=== PATIENT | male | born 1975 | race Caucasian/White ===

== ENCOUNTER 2020-01-21 19:31 | Emergency (ER) | payer OTHER ==
[~2020-01-21] VITALS: Ht 180.3 cm; Wt 124.7 kg
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
[2020-01-21] MEDS ORDERED: TETANUS/DIPHTHERIA TOX ADULT 0.5 ML SYR IM ONE (19:45)
[2020-01-21] MEDS ORDERED: BACITRACIN ZINC 0.9GM TP ONE ×3 (19:45→20:30)
== END 2020-01-21 20:45 | disposition home or self-care (01) ==
LOC: ER 20:38
DX: T21.22XA Burn of second degree of abdominal wall, initial encounter (principal); X12.XXXA Contact with other hot fluids, initial encounter; Y92.008 Other place in unspecified non-institutional (private) residence as the place of occurrence of the external cause; I10 Essential (primary) hypertension; E78.5 Hyperlipidemia, unspecified
CPT/HCPCS: 99282

== ENCOUNTER 2020-04-21 11:57 | Emergency (ER) | payer SELFPAY ==
[~2020-04-21] VITALS: Ht 180.3 cm; Wt 124.7 kg
[2020-04-21] MEDS ORDERED: KETOROLAC TROMETHAMINE 30 MG/ML VIAL IV STA (12:20)
[2020-04-21] MEDS ORDERED: ONDANSETRON HCL INJ 2MG/ML 2ML 2 MG/ML VIAL IV STA (12:20)
[2020-04-21] MEDS ORDERED: SODIUM CHLORIDE 0.9% 1000ML 1,000 ML IV STA (12:20)
[2020-04-21 12:35] LABS: BASOPHILS % 0.6 % (0.0-1.0); EOSINOPHILS # (AUTO) 0.3 (0.0-0.4); EOSINOPHILS % 5.2 % (0.0-6.0); HEMATOCRIT 43.4 % (38.2-49.6); HEMOGLOBIN 14.4 g/dL (14.0-18.0); LYMPHOCYTES # (AUTO) 1.4 (1.0-3.2); LYMPHOCYTES % 28.3 % (18.0-39.1); MEAN CORPUSCULAR HGB CONC 33.2 g/dL (31-35); MEAN CORPUSCULAR VOLUME 93.5 fL (81-99); MONOCYTES # (AUTO) 0.4 (0.2-0.8); NEUTROPHILS # (AUTO) 2.9 (2.1-6.9); NEUTROPHILS % 58.5 % (38.7-80.0); PLATELET COUNT 291 x10e3/uL (140-360); RED BLOOD COUNT 4.64 x10e6/uL (4.3-5.7); RED CELL DISTRIBUTION WIDTH 13.4 % (11.7-14.4)
[2020-04-21 12:55] LABS: ALANINE AMINOTRANSFERASE 211 IU/L (0-55); ALBUMIN 4.3 g/dL (3.5-5.0); ALBUMIN/GLOBULIN RATIO 1.3 (0.8-2.0); ALKALINE PHOSPHATASE 137 IU/L (40-150); ANION GAP 13.7 mmol/L (8-16); BLOOD UREA NITROGEN 20 mg/dL (7-26); BUN/CREATININE RATIO 18 (6-25); CALCIUM 9.2 mg/dL (8.4-10.2); CARBON DIOXIDE 26 mmol/L (22-29); CHLORIDE 104 mmol/L (98-107); CREATININE, SERUM 1.09 mg/dL (0.72-1.25); EST GLOMERULAR FILTRATION RATE > 60 ML/MIN (60-); GLUCOSE 138 mg/dL (74-118); POTASSIUM 4.7 mmol/L (3.5-5.1); SODIUM 139 mmol/L (136-145)
[2020-04-21] MEDS ORDERED: PANTOPRAZOLE SO40 MG PO (14:05)
[2020-04-21] MEDS ORDERED: SODIUM CHLORIDE 0.9% 50ML 50 ML ONE (15:04)
[2020-04-21] MEDS ORDERED: IOPAMIDOL 370 MG/ML 200 ML INFUS..BTL INJ ONE (15:04)
== END 2020-04-21 14:13 | disposition home or self-care (01) ==
LOC: ER 12:25
DX: R10.13 Epigastric pain (principal); I10 Essential (primary) hypertension; F32.9 Major depressive disorder, single episode, unspecified; Z98.0 Intestinal bypass and anastomosis status
CPT/HCPCS: 36415; 74177; 80053; 83690; 85025; 99284; J1885; J2405; J7030; Q9967

== ENCOUNTER 2021-02-27 04:34 | Emergency (ER) | payer SELFPAY ==
[~2021-02-27] VITALS: Ht 180.3 cm; Wt 104.3 kg
[~2021-02-27 04:34] MED LIST: PANTOPRAZOLE SO40 MG PO
[2021-02-27] MEDS ORDERED: IBUPROFEN 600 MG TAB PO STA (04:43)
[2021-02-27] MEDS ORDERED: ASPIRIN 81 MG CHEW TAB PO STA (04:54)
[2021-02-27] MEDS ORDERED: AZITHROMYCIN250 MG PO (05:04)
[2021-02-27] MEDS ORDERED: BROMFED DM COU118 ML PO ×2 (05:04→08:11)
[2021-02-27 05:28] LABS: BASOPHILS % 0.7 % (0.0-1.0); EOSINOPHILS # (AUTO) 0.1 (0.0-0.4); EOSINOPHILS % 2.8 % (0.0-6.0); HEMATOCRIT 44.2 % (38.2-49.6); HEMOGLOBIN 14.4 g/dL (14.0-18.0); LYMPHOCYTES # (AUTO) 1.4 (1.0-3.2); LYMPHOCYTES % 32.9 % (18.0-39.1); MEAN CORPUSCULAR HEMOGLOBIN 30.5 pg (28-32); MEAN CORPUSCULAR HGB CONC 32.6 g/dL (31-35); MEAN CORPUSCULAR VOLUME 93.6 fL (81-99); MONOCYTES # (AUTO) 0.7 (0.2-0.8); MONOCYTES % 16.2 % (4.4-11.3); NEUTROPHILS % 47.2 % (38.7-80.0); PLATELET COUNT 255 x10e3/uL (140-360); RED BLOOD COUNT 4.72 x10e6/uL (4.3-5.7); RED CELL DISTRIBUTION WIDTH 13.3 % (11.7-14.4)
[2021-02-27 05:56] LABS: INR 0.93; PROTHROMBIN TIME 13.2 seconds (11.9-14.5)
[2021-02-27 05:57] LABS: PARTIAL THROMBOPLASTIN TIME 29.1 seconds (23.8-35.5)
[2021-02-27 06:02] LABS: ALBUMIN 4.3 g/dL (3.5-5.0); ALBUMIN/GLOBULIN RATIO 1.3 (0.8-2.0); ANION GAP 15.5 mmol/L (8-16); CREATININE, SERUM 0.92 mg/dL (0.72-1.25); POTASSIUM 4.5 mmol/L (3.5-5.1)
[2021-02-27 06:08] LABS: CREATINE KINASE MB 3.9 ng/mL (0-5.0)
[2021-02-27] MEDS ORDERED: CASIRIVIMAB/IMDEVIMAB 10 ML in SODIUM CHLORIDE 0.9% 100 ML IV ONE (06:15)
== END 2021-02-27 08:31 | disposition home or self-care (01) ==
LOC: ER 04:52
DX: R06.02 Shortness of breath (principal); U07.1 COVID-19; R07.9 Chest pain, unspecified; I10 Essential (primary) hypertension; Z88.2 Allergy status to sulfonamides; Z83.1 Family history of other infectious and parasitic diseases
CPT/HCPCS: 36415; 71045; 80053; 82550; 82553; 83880; 84484; 85025; 85610; 85730; 93005; 99284; J7050; U0002